=== PATIENT | male | born 1960 | race African-American/Black ===

== ENCOUNTER 2017-06-04 10:46 | Emergency (ER) | payer SELFPAY ==
[~2017-06-04] VITALS: Ht 185.4 cm; Wt 110.0 kg
[2017-06-04 10:48] VITALS: BP 145/89
[2017-06-04] MEDS ORDERED: METF500T4 PO (10:49)
== END 2017-06-04 15:19 | disposition left against medical advice (07) ==
LOC: ER 14:33
DX: R05 Cough (principal); R09.81 Nasal congestion; R50.9 Fever, unspecified; Z53.21 Procedure and treatment not carried out due to patient leaving prior to being seen by health care provider

== ENCOUNTER 2017-06-04 18:58 | Emergency (ER) | payer MEDICAID ==
[~2017-06-04] VITALS: Ht 195.6 cm; Wt 105.0 kg
[~2017-06-04 18:58] MED LIST: METF500T4 PO
[2017-06-04] MEDS ORDERED: ALBUTEROL (0.083%) 2.5MG/3ML NEB HHN STA (23:22)
[2017-06-04] MEDS ORDERED: IPRATROPIUM BROMIDE (0.02%) 0.5MG/2.5ML NEB HHN STA (23:22)
[2017-06-04] MEDS ORDERED: SODIUM CHLORIDE 0.9% 1,000 ML IV ONE (23:22)
[2017-06-04] MEDS ORDERED: PREDNISONE 20MG TABLET PO STA (23:22)
[2017-06-04] MEDS ORDERED: GUAIFENESIN/CODEINE 200-20MG/10ML UDC PO ONE (23:30)
[2017-06-04] MEDS ORDERED: LEVOFLOXACIN 750MG PREMIX 150 ML IV ONE (23:30)
[2017-06-04 23:54] LABS: HEMATOCRIT. 38.4 % (42.0-52.0); HEMOGLOBIN. 13.1 g/dL (14.0-18.0); MEAN CORPUSCULAR HEMOGLOBIN 28.8 pg (28.0-32.0); MEAN CORPUSCULAR VOLUME 84.6 fL (80.0-94.0); MEAN PLATELET VOLUME 7.2 fl (7.4-10.4); PLATELET 343 x1000/uL (130-400); RED BLOOD CELL COUNT 4.54 mill/uL (4.7-6.1)
[2017-06-05 00:06] LABS: CARBON DIOXIDE 28 mEq/L (21-32); CHLORIDE 103 mEq/L (98-107); TROPONIN I 0.05 ng/mL (0.00-0.04)
[2017-06-05 01:35] VITALS: BP 169/92
[2017-06-05 05:54] LABS: PLATELET ESTIMATE NORMAL
== END 2017-06-05 02:07 | disposition home or self-care (01) ==
LOC: ER 18:58
DX: R05 Cough (principal); R07.9 Chest pain, unspecified; I10 Essential (primary) hypertension; E11.9 Type 2 diabetes mellitus without complications; F17.200 Nicotine dependence, unspecified, uncomplicated; F14.10 Cocaine abuse, uncomplicated
CPT/HCPCS: 36415; 71010; 80053; 83605; 83880; 84484; 85025; 87040; 93005; 94640; 96365; 99285; J1956; J7030; J7512; J7611; Z7610